=== PATIENT | male | born 1985 | race African-American/Black ===

== ENCOUNTER 2017-05-11 19:26 | Emergency (ER) | payer OTHER ==
[~2017-05-11] VITALS: Ht 177.8 cm; Wt 63.5 kg
[~2017-05-11 19:26] MED LIST: IBUPROFEN 400400 M2 PO; IBUPROFEN 800800 M1 PO
[2017-05-11] MEDS ORDERED: HYDROCODONE-AP1 EAC6 PO (21:30)
[2017-05-11 21:39] VITALS: BP 136/94
== END 2017-05-11 21:39 | disposition home or self-care (01) ==
LOC: ER 19:26
DX: S62.302G Unspecified fracture of third metacarpal bone, right hand, subsequent encounter for fracture with delayed healing (principal); F17.210 Nicotine dependence, cigarettes, uncomplicated; F10.99 Alcohol use, unspecified with unspecified alcohol-induced disorder; X58.XXXD Exposure to other specified factors, subsequent encounter

== ENCOUNTER 2020-11-04 13:58 | Emergency (ER) | payer BC, OTHER ==
[~2020-11-04] VITALS: Ht 177.8 cm; Wt 65.8 kg
[~2020-11-04 13:58] MED LIST changes: +HYDROCODONE-AP1 EAC6 PO
[2020-11-04] MEDS ORDERED: NOHOMEMEDICATIONS (14:10)
[2020-11-04 14:44] LABS: ABSOLUTE NEUTROPHILS 2.3 thou/uL (1.4-8.2); BASOPHILS 0.9 % (0.0-2.0); EOSINOPHILS 1.3 % (0.0-3.0); HEMATOCRIT 42.3 % (42.0-52.0); HEMOGLOBIN 13.9 gm/dL (14.0-18.0); LYMPHOCYTES 44.6 % (24.0-44.0); MCH 29.6 pg (26.0-34.0); MCHC 32.9 g/dL (28.0-37.0); MCV 89.9 fL (80.0-100.0); MONOCYTES 5.1 % (1.0-8.0); PLATELET COUNT 237 thou/uL (150-400); POLYS 48.1 % (36.0-66.0); RDW 13.8 % (10.5-14.5); WBC 4.8 thou/uL (4.0-11.0)
[2020-11-04 14:56] LABS: ANION GAP 12 mmol/L (7-16); BUN 21 mg/dL (7-18); CALCIUM 9.1 mg/dL (8.5-10.1); CHLORIDE 104 mmol/L (98-107); CO2 27 mmol/L (21-32); CREATININE 1.3 mg/dL (0.7-1.3); GLUCOSE 115 mg/dL (74-106); SODIUM 143 mmol/L (136-145)
[2020-11-04 15:05] LABS: TROPONIN-I <0.06 ng/mL (<0.06)
--- NOTE | 2020-11-04 15:19 | EKG ---
[place] [address] [employer] ([employer])[facility] [place] [employer] [place] [address] ELECTROCARDIOGRAM REPORT Name: HUNTER HENDERSON [id number] Admission: 11/04/20 Attend Phys: Discharge: Date of : 81 Report #: [id number] [facility] ED Test Date: 2020-11-04 Test Time: 13:58:55 Pat Name: HUNTER HENDERSON Department: Room: Gender: M Office Engineer: PRAVEEN : 1985 Requested By: Emil Bowman Order Number: [id number] MD: Magdy Calvin Measurements Intervals [place] Rate: 84 P: 86 [place]: 125 QRS: 80 QRSD: 91 T: 58 QT: 356 QTc: 421 Interpretive Statements Sinus rhythm No significant abnormality Compared to ECG 05/24/2016 18:38:08 No significant change was found Electronically Signed On 11-04-2020 15:19:19 [employer] WORK[employer] by Magdy Calvin [email or web address] <ELECTRONICALLY SIGNED> By: Magdy Calvin MD, [facility] 11/04/20 1519 [id number] Madgy Calvin MD, FACC /EPI
[2020-11-04] MEDS ORDERED: MELOXICAM15 MG PO (15:30)
[2020-11-04 16:39] VITALS: BP 145/98
== END 2020-11-04 16:40 | disposition home or self-care (01) ==
LOC: ER 13:58
PROVIDERS: Nurse Practitioner
DX: R07.89 Other chest pain (principal); M94.0 Chondrocostal junction syndrome [Tietze]; F17.210 Nicotine dependence, cigarettes, uncomplicated